=== PATIENT | male | born 1965 | race Caucasian/White ===

== ENCOUNTER 2018-11-02 08:58 | Emergency (ER) | payer OTHER ==
[2018-11-02 09:19] VITALS: BP 129/84
--- NOTE | 2018-11-02 10:29 | UC ---
Shortness of Breath HPI - HPI Summary HPI Summary: 53 year old male with + TOB use with 1 PPD+, presents with 1 week of sinus pressure, pst nasal drip, cough producing mucous, shortness f breath with decreased breathing "breathing through wet sponge". No recent illnesses/ abx, no h/o pna. - History of Current Complaint Chief Complaint: UCGeneralIllness Stated Complaint: COUGH CHEST CONGESTION Time Seen by Provider: 11/02/18 09:59 Hx Obtained From: Patient Onset/Duration: Sudden Onset, Lasting Weeks Current Severity: Moderate Dyspnea At: [facility] Aggrevating Factors: Deep Breaths - Allergy/Home Medications Allergies/Adverse Reactions: Allergies Allergy/AdvReac Type Severity Reaction Status Date / Time Bees Allergy Severe Airway Uncoded 11/02/18 09:19 Obstruction hay fever Allergy See Comment Uncoded 11/02/18 09:19 PMH/Surg Hx/FS Hx/Imm Hx Previously Healthy: Yes - + tob use - Surgical History Surgical History: Yes Surgery Procedure, Year, and Place[place] Metal [place] [facility] [place] FROM LEFT KNEE, 1994[place] [facility] [place] - Family History Known Family History: Positive: Other - father had leukemia Negative: Cardiac Disease, Blood Disorder - Social History Alcohol Use: None Substance Use Type: Marijuana Substance Use Comment - Amount & Last Used: occasional Smoking Status (MU): Heavy Every Day Tobacco Smoker Type: Cigarettes Amount Used/How Often: 2 ppd Have You Smoked in the Last Year: Yes - Immunization History Most Recent Tetanus Shot: November 2012 Review of Systems All Other Systems Reviewed And Are Negative: Yes Constitutional: Positive: Fever, Chills ENT: Positive: Sore Throat, Nasal Discharge, Sinus Congestion, Sinus Pain/ Tenderness Respiratory: Positive: Shortness Of Breath, Cough Is Patient Immunocompromised?: No Physical Exam Triage Information Reviewed: Yes Appearance: No Pain Distress, Well-Nourished, Ill-Appearing - moderate Vital Signs: Initial Vital Signs Temp 98.0 F 11/02/18 09:15 Pulse 75 11/02/18 09:15 Resp 18 11/02/18 09:15 BP 129/84 11/02/18 09:15 Pulse Ox 96 11/02/18 09:15 Vital Signs Reviewed: Yes Eyes: Positive: Conjunctiva Clear. Negative: Conjunctiva Inflamed ENT: Positive: Hearing grossly normal, Pharynx normal, TMs normal, Sinus tenderness - frontal, max b/l. Negative: TM bulging, TM dull, TM red, Tonsillar swelling, Tonsillar exudate Neck: Positive: Supple, Nontender, No Lymphadenopathy. Negative: Nuchal Rigidity, Enlarged Nodes @ Respiratory: Positive: Chest non-tender, Lungs clear, Normal breath sounds, No respiratory distress, No accessory muscle use. Negative: Respiratory distress, Crackles, Rhonchi, Stridor, Wheezing Cardiovascular: Positive: RRR, No Murmur Neurological Exam: Normal Psychological Exam: Normal Skin Exam: Normal Shortness of Breath Dx - Course Course Of Treatment: sinusitis, follow up with PCP, abx given, OTC medications for symptom relief . - Differential Dx/Diagnosis Provider Diagnosis: Sinusitis Discharge - Sign-Out/Discharge Documenting (check all that apply): Patient Departure All imaging exams completed and their final reports reviewed: Yes - Discharge Plan Condition: Fair Disposition: HOME Prescriptions: Albuterol inh POWDER (NF) [Proair Respiclick] 1 puff PO BID #1 mdi Azithromycin TAB* [Zithromax TAB (Z-KAVON) 250 mg #6 tabs] 2 tab PO .TODAY, THEN 1 DAILY #8 tab Patient Education Materials: Sinusitis (ED) Forms: *Work Release Referrals: Pito King MD [Primary Care Provider] - Additional Instructions: - Antibiotics as directed - Albuterol inhaler for shortness of breath every 4 hours, 2 puffs - motrin as needed for pain, muscle aches - Go to ER with fever > 102, shortness of breath, chills - Follow up with primary physician within 2-3 days if no improvement - WOrk note given - Billing Disposition and Condition Condition: FAIR Disposition: Home
== END 2018-11-02 10:35 | disposition home or self-care (01) ==
LOC: UCEAST 08:58
DX: J32.9 Chronic sinusitis, unspecified (principal); R05 Cough; Z91.030 Bee allergy status; Z91.048 Other nonmedicinal substance allergy status; F17.210 Nicotine dependence, cigarettes, uncomplicated
CPT/HCPCS: 71046; 99212; G0463